=== PATIENT | female | born 1975 | race African-American/Black ===

== ENCOUNTER 2019-01-15 21:21 | Emergency (ER) | payer SELFPAY ==
[~2019-01-15 21:21] MED LIST: Iopamidol 370 76% 100 ML VIAL ONE
[2019-01-15] MEDS ORDERED: Aspirin Chewable 81 MG TAB ONE (21:48)
[2019-01-15 21:57] LABS: Eosinophils 1 % (0-10); Hemoglobin 14.3 g/dL (12.0-16.0); Lymphocytes 37 % (21-51); MDiff Complete? YES; Mean Corpuscular HGB CONC 35.9 g/dL (32.0-36.0); Mean Corpuscular Hemoglobin 30.4 pg (27.0-31.0); Mean Corpuscular Volume 84.7 fL (78.0-98.0); Mean Platelet Volume 9.6 fL (7.4-10.4); Monocytes 10 % (0-10); Neutrophil 52 % (42-75); Platelet Count 311 thou/uL (130-400); RBC Distribution Width 12.7 % (11.5-14.5); Red Blood Cell (RBC) Count 4.69 mill/uL (4.20-5.40); White Blood Cell (WBC) Count 14.9 thou/uL (4.8-10.8)
--- NOTE | 2019-01-15 21:58 | RAD ---
PORTABLE CHEST ONE VIEW: 01/15/2019 10:07 p.m. HISTORY: Chest pain. COMPARISON: 11/24/2015 FINDINGS: The heart size is normal. The lungs are expanded without focal areas of consolidation, pneumothorace s, or pleural effusions. IMPRESSION: No acute process. POS: [facility]
[2019-01-15 21:59] LABS: ALT (SGPT) 12 U/L (8-55); AST (SGOT) 13 U/L (5-34); Albumin 4.1 g/dL (3.5-5.0); Alkaline Phosphatase 59 U/L (40-150); Anion Gap 13 mmol/L (10-20); BUN (Urea Nitrogen) 7 mg/dL (7.0-18.7); Bilirubin, Total 0.3 mg/dL (0.2-1.2); CK (CPK) 74 U/L (29-168); Calc. Creatinine Clearance 0 mL/min (70-130); Calcium 9.2 mg/dL (7.8-10.44); Carbon Dioxide 25 mmol/L (22-29); Chloride 106 mmol/L (98-107); Estimated GFR-MDRD Greater than 90; Globulin 4.4 g/dL (2.4-3.5); Glucose 107 mg/dL (70-105); Potassium 3.2 mmol/L (3.5-5.1); Protein, Total 8.5 g/dL (6.0-8.3); Sodium 141 mmol/L (136-145)
--- NOTE | 2019-01-16 07:52 | CT ---
PRELIMINARY REPORT/[facility]/EMERGENCY AFTER HOURS PROCEDURE: EXAM: CT Angiography Chest With Contrast EXAM DATE/TIME: 01/16/2019 12:41 AM CLINICAL HISTORY: 43 years old, female; Type not specified; Patient HX: Chest pain and elevated ddimer TECHNIQUE: Imaging protocol: Axial computed tomographic angiography images of the chest with intravenous contrast using CT angiography protocol. Coronal and sagittal reformatted images were created and reviewed. 3D rendering: MIP reconstructed images were created and reviewed. Radiation optimization: All CT scans at this facility use at least one of these dose optimization techniques: automated exposure control; mA and/or kV adjustment per patient size (includes targeted exams where dose is matched to clinical indication); or iterative reconstruction. Contrast material: ISOVUE 370; Contrast volume: 100 ml; Contrast route: IV LEFT AC 18G; COMPARISON: No relevant prior studies available. FINDINGS: Pulmonary arteries: Adequate contrast enhancement of the pulmonary arteries. Aorta: No evidence of thoracic aortic dissection. Lungs: No evidence endobronchial lesion. Pleural space: No evidence of pneumothorax. Heart: Heart appears within normal limits, no pericardial effusion. No evidence of filling defects in the cardiac chambers. Lymph nodes: Unremarkable. No enlarged lymph nodes. Bones/joints: Musculoskeletal structures appear intact. Soft tissues: Unremarkable. IMPRESSION: 1. No evidence of pulmonary embolism. 2. No evidence of thoracic aortic dissection. Thank you for allowing us to participate in the care of your patient. Dictated and Authenticated by: Robin Jacob MD 01/16/2019 1:59 AM Central Time ([place] & [place]) FINAL REPORT CT ARTERIOGRAM CHEST WITH IV CONTRAST AND 3D IMAGING PERFORMED ON AN EMERGENCY BASIS: Date: 01/16/19 Time: 0057 hours HISTORY: Chest pain. Dyspnea. Elevated d-dimer. FINDINGS: Agree with the preliminary report by Dr. Jacob from [facility]. No CT evidence of p ulmonary embolus. Code QA. Transcribed Date/Time: 01/16/2019 8:34 AM
== END 2019-01-16 02:16 | disposition home or self-care (01) ==
LOC: EEVIPCON 21:21 → SCSER 21:21
DX: R07.9 Chest pain, unspecified (principal); I10 Essential (primary) hypertension; F41.9 Anxiety disorder, unspecified; F31.9 Bipolar disorder, unspecified; Z79.899 Other long term (current) drug therapy
CPT/HCPCS: 36415; 71045; 71275; 80053; 82550; 84484; 85025; 85379; 93005; Q9967